=== PATIENT | male | born 1965 | race Caucasian/White ===

== ENCOUNTER 2016-11-01 10:24 | Inpatient (IN) | payer OTHER ==
[~2016-11-01] VITALS: Ht 175.2 cm; Wt 66.3 kg
[2016-11-01 11:05] LABS: BASO % 0.5 % (0.0-1.0); EOS # 0.1 10*3/uL (0.0-0.4); EOS % 1.8 % (1.0-4.0); HEMATOCRIT 43.4 % (42.0-52.0); HEMOGLOBIN 14.4 g/dl (14.0-18.0); LYMPH # 2.1 10*3/uL (1.3-4.4); LYMPH % 25.9 % (27.0-41.0); MEAN CORPUSCULAR HGB 30.2 pg (27.0-31.0); MEAN CORPUSCULAR HGB CONC 33.2 g/dl (33.0-37.0); MEAN PLATELET VOLUME 9.3 fl (9.6-12.3); MONO # 0.4 10*3/uL (0.1-1.0); MONO % 5.5 % (3.0-9.0); NEUT # 5.3 10*3/uL (2.3-7.9); PLATELET COUNT AUTOMATED 186 10*3/uL (130-400); RED BLOOD COUNT 4.77 10*6/uL (4.50-5.90); RED CELL DISTRI WIDTH 13.2 % (0-14.5)
[2016-11-01 11:07] VITALS: BP 142/88
[2016-11-01 11:12] LABS: INTERNATIONAL NORM RATIO 1.1 (2.0-3.5); PROTHROMBIN TIME 11.3 SECONDS (9.0-12.4)
[2016-11-01 11:13] LABS: BILIRUBIN NEGATIVE (NEGATIVE); BLOOD NEGATIVE (NEGATIVE); CLARITY CLEAR (CLEAR); COLOR YELLOW (YELLOW); GLUCOSE NEGATIVE (NEGATIVE); KETONE NEGATIVE (NEGATIVE); LEUKO ESTERASE NEGATIVE (NEGATIVE); NITRITE NEGATIVE (NEGATIVE); PH 5.5 (5.0-9.0); PROTEIN NEGATIVE (NEGATIVE); UROBILINOGEN 0.2 E.U./dl (0.2-1.0)
[2016-11-01 11:18] LABS: ALBUMIN 3.4 gm/dl (3.1-4.5); ALKALINE PHOSPHATASE 75 U/L (45-117); BILIRUBIN, TOTAL 0.4 mg/dl (0.2-1.0); BUN 13 mg/dl (7-24); CARBON DIOXIDE 31 mmol/L (21-32); CHLORIDE 102 mmol/L (98-107); EST GLOM FILT AFRICAN AMERICAN > 60 ml/min; GLUCOSE 100 mg/dL (65-99); POTASSIUM 4.6 mmol/L (3.5-5.1); SGOT/AST 43 IU/L (3-35); SGPT/ALT 59 U/L (12-78); SODIUM 140 mmol/L (136-145); TOTAL PROTEIN 7.6 gm/dL (6.4-8.2)
[2016-11-01] MEDS ORDERED: TRAZODONE100 MG PO (11:18)
[2016-11-01 11:22] LABS: URINE AMPHETAMINES < 1000 (1000ng/ml); URINE BARBITURATES < 200 (200ng/ml); URINE COCAINE > 300 (300ng/ml)
[2016-11-01 11:30] LABS: EPITHELIAL CELLS 0-2; URINE REFLEX COMMENT NO (NO)
[2016-11-01 12:00] VITALS: BP 142/88
[2016-11-01 16:00] VITALS: BP 117/68
[2016-11-01 20:00] VITALS: BP 135/83
[2016-11-02] VITALS: BP 135/75
[2016-11-02 04:00] VITALS: BP 146/87
[2016-11-02 08:00] VITALS: BP 122/76
[2016-11-02 12:00] VITALS: BP 126/82
[2016-11-02 16:00] VITALS: BP 134/94
[2016-11-02 20:00] VITALS: BP 114/71; BP 133/85
[2016-11-03] VITALS: BP 121/89
[2016-11-03 08:00] VITALS: BP 144/82
[2016-11-03 12:00] VITALS: BP 138/78
[2016-11-03 16:00] VITALS: BP 126/88
[2016-11-03 20:00] VITALS: BP 112/74; BP 163/103
[2016-11-04] VITALS: BP 124/72; BP 144/89
[2016-11-04 08:00] VITALS: BP 138/86
[2016-11-04] MEDS ORDERED: THERA TABS1 TAB PO (11:08)
[2016-11-04] MEDS ORDERED: ATARAX,VISTARIL50 MG PO (11:08)
[2016-11-04] MEDS ORDERED: ZOFRAN 4 MG ED2 TAB PO (11:08)
[2016-11-04 12:00] VITALS: BP 149/80
== END 2016-11-04 12:34 | disposition home or self-care (01) | DRG 897 ==
LOC: 5E 10:24
PROVIDERS: Internal Medicine
DX: F11.23 Opioid dependence with withdrawal (principal); E44.0 Moderate protein-calorie malnutrition; B19.10 Unspecified viral hepatitis B without hepatic coma; F41.9 Anxiety disorder, unspecified; B19.20 Unspecified viral hepatitis C without hepatic coma; F32.9 Major depressive disorder, single episode, unspecified; F14.10 Cocaine abuse, uncomplicated; F17.200 Nicotine dependence, unspecified, uncomplicated; Z71.6 Tobacco abuse counseling; Z86.19 Personal history of other infectious and parasitic diseases; Z82.3 Family history of stroke; Z79.899 Other long term (current) drug therapy; Z68.21 Body mass index [BMI] 21.0-21.9, adult

== ENCOUNTER 2017-06-12 10:23 | Inpatient (IN) | payer OTHER ==
[~2017-06-12] VITALS: Ht 175.2 cm; Wt 67.7 kg
[~2017-06-12 10:23] MED LIST: ATARAX,VISTARIL50 MG PO; THERA TABS1 TAB PO; TRAZODONE100 MG PO; ZOFRAN 4 MG ED2 TAB PO
[2017-06-12 12:06] VITALS: BP 103/59
[2017-06-12 12:57] LABS: BASO % 0.3 % (0.0-1.0); EOS % 0.2 % (1.0-4.0); HEMOGLOBIN 13.8 g/dl (14.0-18.0); LYMPH # 1.5 10*3/uL (1.3-4.4); LYMPH % 12.2 % (27.0-41.0); MEAN CELL VOLUME 90.3 fl (80.0-94.0); MEAN CORPUSCULAR HGB 30.4 pg (27.0-31.0); MEAN CORPUSCULAR HGB CONC 33.7 g/dl (33.0-37.0); MONO # 0.4 10*3/uL (0.1-1.0); MONO % 3.6 % (3.0-9.0); NEUT # 10.2 10*3/uL (2.3-7.9); NEUT % 83.5 % (47.0-73.0); PLATELET COUNT AUTOMATED 181 10*3/uL (130-400); RED BLOOD COUNT 4.54 10*6/uL (4.50-5.90); RED CELL DISTRI WIDTH 12.7 % (0-14.5); WHITE BLOOD COUNT 12.3 10*3/uL (4.8-10.8)
[2017-06-12 13:00] LABS: URINE AMPHETAMINES < 1000 (1000ng/ml); URINE BARBITURATES < 200 (200ng/ml); URINE BENZODIAZEPINES < 200 (200ng/ml); URINE CANNABINOIDS (THC) < 50 (50ng/ml); URINE COCAINE > 300 (300ng/ml); URINE METHADONE < 300 (300ng/ml); URINE OPIATES > 300 (300ng/ml)
[2017-06-12 13:03] LABS: URINE PHENCYCLIDINE < 25 (25ng/ml)
[2017-06-12 13:04] LABS: INTERNATIONAL NORM RATIO 1.2 (2.0-3.5)
[2017-06-12 13:15] LABS: ALBUMIN 3.6 gm/dl (3.1-4.5); ALKALINE PHOSPHATASE 70 U/L (45-117); BUN 20 mg/dl (7-24); CHLORIDE 94 mmol/L (98-107); CREATININE 1.11 mg/dL (0.70-1.30); ETHYL ALCOHOL < 3.0 mg/dl (<3); POTASSIUM 4.5 mmol/L (3.5-5.1); SGOT/AST 70 IU/L (3-35); SGPT/ALT 88 U/L (12-78); SODIUM 134 mmol/L (136-145); TOTAL PROTEIN 8.2 gm/dL (6.4-8.2)
[2017-06-12 16:00] VITALS: BP 118/68
[2017-06-12 20:09] VITALS: BP 111/74
[2017-06-13 00:27] VITALS: BP 126/79
[2017-06-13 04:00] VITALS: BP 120/79
[2017-06-13 08:00] VITALS: BP 124/88
[2017-06-13 12:00] VITALS: BP 126/65
[2017-06-13 16:00] VITALS: BP 132/80
[2017-06-13 20:00] VITALS: BP 147/82
[2017-06-14 00:05] VITALS: BP 135/81
[2017-06-14 08:00] VITALS: BP 120/70
[2017-06-14 16:00] VITALS: BP 114/78
[2017-06-14 20:00] VITALS: BP 140/91
[2017-06-15 06:02] LABS: BASO % 0.7 % (0.0-1.0); EOS # 0.1 10*3/uL (0.0-0.4); EOS % 2.6 % (1.0-4.0); HEMOGLOBIN 15.3 g/dl (14.0-18.0); LYMPH # 2.1 10*3/uL (1.3-4.4); MEAN CELL VOLUME 89.6 fl (80.0-94.0); MEAN CORPUSCULAR HGB 31.2 pg (27.0-31.0); MEAN CORPUSCULAR HGB CONC 34.8 g/dl (33.0-37.0); MEAN PLATELET VOLUME 9.7 fl (9.6-12.3); MONO # 0.5 10*3/uL (0.1-1.0); MONO % 8.4 % (3.0-9.0); NEUT # 2.7 10*3/uL (2.3-7.9); NEUT % 49.1 % (47.0-73.0); PLATELET COUNT AUTOMATED 218 10*3/uL (130-400); RED BLOOD COUNT 4.91 10*6/uL (4.50-5.90); RED CELL DISTRI WIDTH 12.5 % (0-14.5); WHITE BLOOD COUNT 5.5 10*3/uL (4.8-10.8)
[2017-06-15 06:32] LABS: CREATININE 1.05 mg/dL (0.70-1.30)
[2017-06-15 08:00] VITALS: BP 131/81
[2017-06-15] MEDS ORDERED: ZOFRAN 4 MG ED2 TAB PO (11:08)
[2017-06-15] MEDS ORDERED: ATARAX,VISTARIL50 MG PO (11:08)
[2017-06-15] MEDS ORDERED: ROPINIROLE HYD0.5 MG PO (11:08)
== END 2017-06-15 11:37 | disposition home or self-care (01) | DRG 897 ==
LOC: 4E 10:23
PROVIDERS: Internal Medicine
DX: F11.23 Opioid dependence with withdrawal (principal); E87.8 Other disorders of electrolyte and fluid balance, not elsewhere classified; E87.1 Hypo-osmolality and hyponatremia; B18.1 Chronic viral hepatitis B without delta-agent; F33.9 Major depressive disorder, recurrent, unspecified; F14.10 Cocaine abuse, uncomplicated; F19.10 Other psychoactive substance abuse, uncomplicated; F41.9 Anxiety disorder, unspecified; B18.2 Chronic viral hepatitis C; G25.81 Restless legs syndrome; D72.829 Elevated white blood cell count, unspecified; D64.9 Anemia, unspecified; R73.9 Hyperglycemia, unspecified; F17.210 Nicotine dependence, cigarettes, uncomplicated; Z71.6 Tobacco abuse counseling; Z82.49 Family history of ischemic heart disease and other diseases of the circulatory system; Z82.3 Family history of stroke; Z79.899 Other long term (current) drug therapy